=== PATIENT | female | born 1970 | race Caucasian/White ===

== ENCOUNTER 2016-09-28 01:10 | Emergency (ER) | payer MEDICAID ==
[~2016-09-28] VITALS: Ht 160 cm; Wt 68.2 kg
[~2016-09-28 01:10] MED LIST: IBUP200C PO; PNV; PREN1TAB49 BC
[2016-09-28 01:22] VITALS: Ht 160 cm; Wt 68.2 kg
[2016-09-28] MEDS ORDERED: morphine 4 MG/ML VIAL IV STA ×2 (02:08→03:57)
[2016-09-28] MEDS ORDERED: ONDANSETRON 4 MG INJ IV STA (02:08)
[2016-09-28] MEDS ORDERED: SOD CHLORIDE 0.9% 1,000 ML IV STA (02:08)
[2016-09-28 02:32] LABS: ALBUMIN 4.5 g/dl (3.3-4.9); POTASSIUM 3.7 mmol/L (3.5-5.1)
[2016-09-28 02:34] LABS: BASOPHILS % 0.3 % (0.0-2.0); BILIRUBIN,INDIRECT 0.2 mg/dl (0-1.1); BILIRUBIN,TOTAL 0.2 mg/dl (0.2-1.3); CREATININE 0.51 mg/dl (0.44-1.00); EOSINOPHILS # 0.3 10^3/ul (0.0-0.5); EOSINOPHILS % 1.5 % (0.0-7.0); HEMATOCRIT 42.4 % (37.0-47.0); HEMOGLOBIN 14.4 g/dl (12.0-16.0); LYMPHOCYTES # 3.2 10^3/ul (0.8-2.9); LYMPHOCYTES % 17.5 % (15.0-51.0); MEAN CORPUSCULAR HEMOGLOBIN 31.4 pg (29.0-33.0); MEAN CORPUSCULAR VOLUME 92.3 fl (82.0-101.0); MEAN PLATELET VOLUME 7.5 fl (7.4-10.4); MONOCYTE # 0.9 10^3/ul (0.3-0.9); MONOCYTES % 5.1 % (0.0-11.0); NEUTROPHIL # 13.9 10^3/ul (1.6-7.5); NEUTROPHILS % 75.6 % (39.0-77.0); PLATELET COUNT 293 10^3/UL (140-440); RED BLOOD COUNT 4.59 10^6/ul (4.20-5.40); RED CELL DISTRIBUTION WIDTH 12.6 % (11.5-14.5); UNCORRECTED WBC 18.4 10^3/ul (4.8-10.8); WHITE BLOOD COUNT 18.4 10^3/ul (4.8-10.8)
[2016-09-28 02:35] LABS: ALBUMIN/GLOBULIN RATIO 1.36; CALCIUM 9.3 mg/dl (8.4-10.2); TOTAL PROTEIN 7.8 g/dl (6.1-8.1)
[2016-09-28 02:36] LABS: CONDITION 1
[2016-09-28 03:00] LABS: ADD UMIC YES; URINE BILIRUBIN (Dip) NEGATIVE (NEGATIVE); URINE BLOOD (Dip) 2+ (NEGATIVE); URINE COLOR YELLOW (YELLOW); URINE GLUCOSE (Dip) NEGATIVE (NEGATIVE); URINE KETONES (Dip) TRACE (NEGATIVE); URINE LEUKOCYTE ESTERASE (Dip) NEGATIVE (NEGATIVE); URINE NITRITE (Dip) NEGATIVE (NEGATIVE); URINE TOTAL PROTEIN (Dip) NEGATIVE (NEGATIVE); URINE UROBILINOGEN (Dip) 0.2 E.U./dL (0.1-1.0)
[2016-09-28 03:09] LABS: BACTERIA,URINE OCCASIONAL; SQUAMOUS EPITHELIAL CELL,UR OCCASIONAL; URINE RBCS 0-2 /HPF (0)
--- NOTE | 2016-09-28 03:38 | RADRPT ---
PROCEDURE: CT Abdomen and pelvis without contrast. CLINICAL INDICATION: Abdominal pain. TECHNIQUE: CT scan of the abdomen and pelvis was performed on the [employer] 6 4 slice VCT scanner. Contiguous axial images using 2.5 mm slice thickness were obtained from the ariadne ng bases to the ischial tuberosities without intravenous contrast. Coronal and sagittal reformatted images were also obtained. Images were reviewed on the PACS workstation. One or more of the following dose reduction techniques were used: - Automated exposure control. - Adjustment of the mA and/or kV according to patient size. - Use of iterative reconstruction technique. Exam CTD/vol = 9.08 mGy. Total exam DLP = 540.25 mGy-cm. COMPARISON: None. FINDINGS: Evaluation of the lung bases demonstrates mild bibasilar atelectasis. There is a nodular density wit hin the left lower lobe measuring 8 x 5 mm. Abdomen: The liver is normal in size. There is no focal mass or dilatation of the biliary tree. T he gallbladder is not distended. The spleen, pancreas and bilateral adrenal glands are within radha l limits. Bilateral kidneys are normal in size with no contour deforming mass identified. There is no radiopaque renal or ureteral calculus identified. There is no hydronephrosis or hydroureter. T here is no retroperitoneal adenopathy. The abdominal aorta is of normal caliber. There is moderate retained stool within the colon. There is no bowel obstruction or free air. The appendix is not visualized. There is no diverticulosis or diverticulitis. There is no ascites. Pelvis: The bladder is unremarkable. The uterus and adnexa are within normal limits. There is no significant pelvic adenopathy or free fluid. Evaluation of the osseous structures demonstrates no suspicious lytic or blastic lesion. IMPRESSION: Moderate retained stool within the colon. Left lower lobe 8 x 5 mm nodule. Follow-up by Fleischner guidelines is recommended. Mild bibasilar atelectasis. .Jitendra Regalado MD, MD Date Time Electronically viewed and signed by .Jitendra Regalado MD, MD on 09/28/2016 03:38 .T/
--- NOTE | 2016-09-28 03:43 | ERD ---
ER Documentation Chief Complaint Date/Time DATE: 09/28/16 TIME: 03:41 Chief Complaint abd pain n/v x 2 hrs HPI This is a 46-year-old female comes in for f abdominal pain nausea vomiting for 2 hours. Abdominal pain is lower abdomen. Pain is colicky in nature. No fevers no chills. No other current complaints. Pain is radiated to her back. No other current problems. Pain tends to come in waves, and is relieved by rest. No other current issues ROS All systems reviewed and are negative except as per history of present illness. Medications Home Meds Reported Medications Ibuprofen* (Ibuprofen*) 200 Mg Capsule, 200 MG PO NEEDED 06/02/11 Vits W-Ca,Fe,Fa(<1MG) () 1 Tab Tablet, 1 BC 05/07/11 [Pnv] No Conflict Check 11/19/10 Allergies Allergies: Coded Allergies: No Known Allergies (Verified Allergy, Mild, 06/02/11) PMhx/Soc Medical and Surgical Hx: pt denies Medical Hx History of Surgery: Yes ( X 2) Anesthesia Reaction: No Hx Neurological Disorder: No Hx Respiratory Disorders: No Hx Cardiac Disorders: No Hx Psychiatric Problems: No Hx Miscellaneous Medical Probl: No Hx Alcohol Use: No Hx Substance Use: No Hx Tobacco Use: No Smoking Status: Never smoker Physical Exam Vitals Vital Signs Date Time Temp Pulse Resp B/P Pulse Ox O2 Delivery O2 Flow Rate FiO2 09/28/16 02:02 97.6 77 26 118/100 100 Room Air 09/28/16 01:22 97.6 84 26 135/80 98 Physical Exam Const: [] Head: Atraumatic Eyes: Normal Conjunctiva ENT: Normal External Ears, Nose and Mouth. Neck: Full range of motion..~ No meningismus. Resp: Clear to auscultation bilaterally Cardio: Regular rate and rhythm, no murmurs Abd: Soft, non tender, non distended. Normal bowel sounds Skin: No petechiae or rashes Back: No midline or flank tenderness Ext: No cyanosis, or edema Neur: Awake and alert Psych: Normal Mood and Affect Result Diagram: 09/28/16 0203 09/28/16 0203 Results 24 hrs Laboratory Tests Test 09/28/16 02:03 09/28/16 02:30 Alanine Aminotransferase (ALT/SGPT) 29IU/L Albumin 4.5g/dl Albumin/Globulin Ratio 1.36 Alkaline Phosphatase 69IU/L Anion Gap 21 Aspartate Amino Transf (AST/SGOT) 29IU/L Basophils # 0.010^3/ul Basophils % 0.3% Beta HCG, Quantitative < 2.4mIU/ml Blood Urea Nitrogen 12mg/dl Calcium Level 9.3mg/dl Carbon Dioxide Level 21mmol/L Chloride Level 103mmol/L Creatinine 0.51mg/dl Direct Bilirubin 0.00mg/dl Eosinophils # 0.310^3/ul Eosinophils % 1.5% Globulin 3.30g/dl Glucose Level 128mg/dl Hematocrit 42.4% Hemoglobin 14.4g/dl Indirect Bilirubin 0.2mg/dl Lipase 87U/L Lymphocytes # 3.210^3/ul Lymphocytes % 17.5% Mean Corpuscular Hemoglobin 31.4pg Mean Corpuscular Hemoglobin Concent 34.0g/dl Mean Corpuscular Volume 92.3fl Mean Platelet Volume 7.5fl Monocytes # 0.910^3/ul Monocytes % 5.1% Neutrophils # 13.910^3/ul Neutrophils % 75.6% Nucleated Red Blood Cells # 0.010^3/ul Nucleated Red Blood Cells % 0.0/100WBC Platelet Count 03284^3/UL Potassium Level 3.7mmol/L Red Blood Count 4.5910^6/ul Red Cell Distribution Width 12.6% Sodium Level 141mmol/L Total Bilirubin 0.2mg/dl Total Protein 7.8g/dl White Blood Count 18.410^3/ul Urine Bacteria OCCASIONAL Urine Bilirubin NEGATIVE Urine Clarity CLEAR Urine Color YELLOW Urine Glucose NEGATIVE% Urine Hemoglobin 2+ Urine Ketones TRACE Urine Leukocyte Esterase NEGATIVE Urine Microscopic RBC 0-2/HPF Urine Microscopic WBC 0-2/HPF Urine Nitrite NEGATIVE Urine Specific [place] 1.025 Urine Squamous Epithelial Cells OCCASIONAL Urine Total Protein NEGATIVE Urine Urobilinogen 0.2 E.U./dL Urine pH 5.5 Current Medications Medications (Trade) Dose Ordered Sig/Jj Route PRN Reason Start Time Stop Time Status Last Admin Dose Admin Sodium Chloride (NS) 1,000 ml @ 1,000 mls/hr Q1H STAT IV 09/28/16 02:08 09/28/16 03:07 DC 09/28/16 02:13 Morphine Sulfate (morphine) 4 mg ONCE STAT IV 09/28/16 02:08 09/28/16 02:09 DC 09/28/16 02:13 Ondansetron HCl (Zofran Inj) 4 mg ONCE STAT IV 09/28/16 02:08 09/28/16 02:09 DC 09/28/16 02:13 Procedures/MDM CBC: Evidence of elevated white count, likely stress reaction secondary to normal neutrophil shift CMP: [no e/o severe acidosis, alkalosis, renal failure, diabetic ketoacidosis, liver disease] Lipase: [no e/o pancreatitis] PT/INR: [normal coagulation] Urine: [no e/o acute infection or hematuria] CT shows retained stool Medical decision-making: This very pleasant patient comes with abdominal pain likely secondary constipation. At this point she is clinically stable. We discharged him with Colace Fleet Enema along with tramadol for pain. She is to return in 8 hours for serial abdominal exams. She is to increase p.o. fluid intake and fiber intake. Departure Diagnosis: Primary Impression: Abdominal pain Abdominal location: unspecified location Qualified Code: R10.9 - Abdominal pain, unspecified location Additional Impression: Constipation Constipation type: unspecified constipation type Qualified Code: K59.00 - Constipation, unspecified constipation type Condition: Stable RICK ALMAZAN Sep 28, 2016 03:43
[2016-09-28] MEDS ORDERED: FLEETOIL PR (03:51)
[2016-09-28] MEDS ORDERED: ULT50 PO (03:51)
[2016-09-28] MEDS ORDERED: DOCU-144 PO (03:51)
[2016-09-28 04:11] VITALS: BP 117/64; PULSE 76; RESP 26; TEMP 97.6
== END 2016-09-28 03:51 | disposition home or self-care (01) ==
LOC: E/R 01:10
DX: R10.30 Lower abdominal pain, unspecified (principal); K59.00 Constipation, unspecified; R11.2 Nausea with vomiting, unspecified
CPT/HCPCS: 36415; 74176; 80053; 81001; 81003; 83690; 84702; 85025; 96361; 96374; 96375; 96376; J2270; J2405; J7030; Z7502

== ENCOUNTER 2018-02-22 01:37 | Emergency (ER) | END 2018-02-22 05:50 | disposition home or self-care (01) ==

== ENCOUNTER 2018-10-27 15:03 | Emergency (ER) | payer MEDICAID ==
[~2018-10-27] VITALS: Wt 72.6 kg
[~2018-10-27 15:03] MED LIST changes: +DOCU-144 PO; +HYDR-4011 PO; +IBUP-1542 PO; +IBUP-1982 PO; -IBUP200C PO; +MINE133E23 PR; +TRAM50TA2 PO
[2018-10-27] MEDS ORDERED: LIDOCAINE 2% VISC 15 ML CUP PO ONE (15:30)
--- NOTE | 2018-10-27 15:46 | ERD ---
ER Documentation Chief Complaint Chief Complaint POSSIBLE FB TO THROAT S/P INGESTING FISH IN AM, AIRWAY PATENT ABLE TO SPEAK HPI Pleasant 48-year-old female who presents with family member. The patient states around 10 AM this morning she ate some fish and felt like there was a fish bone stuck in the back right of her throat. Since then she has a foreign body sensation. No difficulty swallowing only some mild discomfort. No drooling, no change in her voice. During the patient's encounter translation services were utilized Language: Faroese Source: Family in person ROS All systems reviewed and are negative except as per history of present illness. Medications Home Meds Discontinued Reported Medications Ibuprofen* (Ibuprofen*) 200 Mg Capsule, 200 MG PO NEEDED 06/02/11 Vits W-Ca,Fe,Fa(<1MG) () 1 Tab Tablet, 1 BC 05/07/11 [Pnv] No Conflict Check 11/19/10 Discontinued Scripts Hydrocodone/Acetaminophen ([place] 5-325 Tablet) 1 Each Tablet, 1 TAB PO Q6H PRN for SEVERE PAIN LEVEL 7-10, #20 TAB Prov:RACHEAL WARREN [employer]PER[employer]OR 02/22/18 Ibuprofen* (Motrin*) 600 Mg Tab, 600 MG PO Q6H PRN for PAIN AND OR ELEVATED TEMP, #30 TAB Prov:RACHEAL WARREN [employer]PER[employer]OR 02/22/18 Tramadol HCl (Tramadol HCl) 50 Mg Tablet, 50 MG PO Q6H PRN for PAIN, #15 TAB Prov:RICK ALMAZAN 09/28/16 Docusate Sodium* (Colace*) 100 Mg Capsule, 100 MG PO DAILY, #15 CAP Prov:RICK ALMAZAN 09/28/16 Mineral Oil* (Fleet* Mineral Oil Enema) 133 Ml Oil, 133 ML MS NEEDED PRN for CONSTIPATION, #1 ENEMA Prov:RICK ALMAZAN 09/28/16 Allergies Allergies: Coded Allergies: No Known Allergies (Verified Allergy, Mild, 10/27/18) PMhx/Soc History of Surgery: Yes ( X 2) Anesthesia Reaction: No Hx Neurological Disorder: No Hx Respiratory Disorders: No Hx Cardiac Disorders: No Hx Psychiatric Problems: No Hx Miscellaneous Medical Probl: No Hx Alcohol Use: No Hx Substance Use: No Hx Tobacco Use: No FmHx Family History: No diabetes Physical Exam Vitals Vital Signs Date Temp Pulse Resp B/P (MAP) Pulse Ox O2 O2 Flow FiO2 Time Delivery Rate 10/27/18 97.6 81 20 138/75 98 15:08 (96) Physical Exam General: Well developed, well nourished, no acute distress Head: Normocephalic, atraumatic. Eyes: EOM intact ENT: Moist mucous membranes, posterior pharynx without swelling or exudates uvula is midline no visualized foreign body or abrasion Neck: Full ROM Respiratory: No respiratory distress Cardiovascular: Well perfused distally Abdominal: Nondistended : Deferred MSK: No edema, no unilateral swelling, 5/5 strength Neurologic: Alert and oriented, moving all extremities, normal speech, steady gait Skin: No rash Psych: Normal mood Results 24 hrs Laboratory Tests Test 10/27/18 15:58 POC Beta HCG, Qualitative NEGATIVE Current Medications Medications Dose Sig/Jj Start Time Status Last (Trade) Ordered Route PRN Stop Time Admin Dose Reason Admin Lidocaine 15 ml ONCE ONCE 10/27/18 DC 10/27/18 (Xylocaine PO 15:30 10/27/18 15:39 (Viscous)) 15:31 Procedures/MDM EKG, MONITORS, & DIAGNOSTIC IMAGING: CT neck: No evidence of foreign body per radiologist read LAB INTERPRETATION: HCG negative MEDICAL DECISION MAKING: The patient presents to the emergency room with a fishbone foreign body sensation in her neck. She exhibits no signs or symptoms concerning for deep space infection or complete obstruction. CT of the neck soft tissue would be appropriate. If the patient has foreign body potentially semiurgent ENT follow- up would be appropriate. Viscous lidocaine appropriate. ER COURSE: * This is lidocaine given. Only mild relief. CT negative. * At this point the patient is tolerating oral intake. She is otherwise well- appearing without evidence ofinfection. The patient can be safely discharged with outpatient ENT follow-up if symptoms do not improve in 48 hours. CONSULTATION: [None] DISPOSITION PLAN: The patient does not have an identifiable emergent medical condition that warrants inpatient hospitalization at this time. The patient is deemed safe for discharge with outpatient follow-up. We discussed follow up with the patient's primary care doctor within 24 to 48 hours as needed. We also discussed return to the emergency room for worsening symptoms or worsening condition. Outpatient referral: ENT Departure Diagnosis: Primary Impression: Abrasion of pharynx Encounter type: initial encounter Qualified Codes: S10.11XA - Abrasion of throat, initial encounter Additional Impression: Foreign body sensation in throat Condition: Stable BILL ABEL MD Oct 27, 2018 15:46
[2018-10-27 17:27] VITALS: BP 128/78; PULSE 72; RESP 18
== END 2018-10-27 17:29 | disposition home or self-care (01) ==
LOC: E/R 15:03
DX: S10.11XA Abrasion of throat, initial encounter (principal); R09.89 Other specified symptoms and signs involving the circulatory and respiratory systems; X58.XXXA Exposure to other specified factors, initial encounter; Y92.9 Unspecified place or not applicable
CPT/HCPCS: 70490; 81025; Z7610

== ENCOUNTER 2019-01-10 16:46 | Emergency (ER) | payer MEDICAID ==
[~2019-01-10] VITALS: Ht 154.9 cm; Wt 72.3 kg
[2019-01-10 17:07] VITALS: Ht 154.9 cm; Wt 72.3 kg
[2019-01-10] MEDS ORDERED: morphine 4 MG/ML VIAL IV STA (20:57)
--- NOTE | 2019-01-10 22:05 | ERD ---
ER Documentation Chief Complaint Chief Complaint POST OP PAIN/DEHISCENCE - HAD SURGERY ( REMOVAL OF FIBROIDS 2 WEEKS AGO) HPI 48-year-old female presenting with lower abdominal pain. She is status post fibroid surgery done at [facility] 2 weeks ago. She had a laparoscopic surgery. 1 of her laparoscopy sites seems to have opened up and she was concerned about this. She also complains of lower abdominal pain that is worse than usual. No fevers or chills. She does have mild dysuria but no hematuria. No constipation, diarrhea, melena or hematochezia. ROS All systems reviewed and are negative except as per history of present illness. Medications Home Meds No Active Prescriptions or Reported Meds Allergies Allergies: Coded Allergies: No Known Allergies (Verified Allergy, Mild, 01/10/19) PMhx/Soc History of Surgery: Yes ( X 2, fibroidectomy) Anesthesia Reaction: No Hx Neurological Disorder: No Hx Respiratory Disorders: No Hx Cardiac Disorders: No Hx Psychiatric Problems: No Hx Miscellaneous Medical Probl: Yes (ELEVATED CHOLESTEROL) Hx Alcohol Use: No Hx Substance Use: No Hx Tobacco Use: No Smoking Status: Never smoker FmHx Family History: No diabetes Physical Exam Vitals Vital Signs Date Temp Pulse Resp B/P (MAP) Pulse Ox O2 O2 Flow FiO2 Time Delivery Rate 01/11/19 60 18 101/54 100 Room Air 00:19 (70) 01/10/19 68 14 126/84 100 Room Air 20:11 (98) 01/10/19 98.2 79 19 114/71 98 17:07 (85) Physical Exam Const: No acute distress Head: Atraumatic Eyes: Normal Conjunctiva ENT: Normal External Ears, Nose and Mouth. Neck: Full range of motion. No meningismus. Resp: Clear to auscultation bilaterally Cardio: Regular rate and rhythm, no murmurs Abd: Left lower abdominal small surgical incision with dehiscence, very shallow. No fluctuance or surrounding erythema. Soft abdomen, mild lower abdominal tenderness to palpation, more on the left. No McBurney's point tenderness. Negative Ovalles sign. No rebound or guarding. Non distended. Normal bowel sounds Skin: No petechiae or rashes Back: No midline or flank tenderness Ext: No cyanosis, or edema Neur: Awake and alert Psych: Normal Mood and Affect Result Diagram: 4201301/10/192013 Results 24 hrs Laboratory Tests Test 01/10/19 20:14 White Blood Count 11.2 10^3/ul Red Blood Count 4.30 10^6/ul Hemoglobin 13.8 g/dl Hematocrit 39.4 % Mean Corpuscular Volume 91.6 fl Mean Corpuscular Hemoglobin 32.1 pg Mean Corpuscular Hemoglobin Concent 35.0 g/dl Red Cell Distribution Width 12.0 % Platelet Count 269 10^3/UL Mean Platelet Volume 9.5 fl Immature Granulocytes % 0.400 % Neutrophils % 55.7 % Lymphocytes % 31.3 % Monocytes % 8.5 % Eosinophils % 3.7 % Basophils % 0.4 % Nucleated Red Blood Cells % 0.0 /100WBC Immature Granulocytes # 0.050 10^3/ul Neutrophils # 6.2 10^3/ul Lymphocytes # 3.5 10^3/ul Monocytes # 1.0 10^3/ul Eosinophils # 0.4 10^3/ul Basophils # 0.1 10^3/ul Nucleated Red Blood Cells # 0.0 10^3/ul Urine Color YELLOW Urine Clarity CLOUDY Urine pH 6.0 Urine Specific [place] 1.009 Urine Ketones NEGATIVE mg/dL Urine Nitrite NEGATIVE mg/dL Urine Bilirubin NEGATIVE mg/dL Urine Urobilinogen NEGATIVE mg/dL Urine Leukocyte Esterase TRACE Grace/ul Urine Microscopic RBC 7 /HPF Urine Microscopic WBC 4 /HPF Urine Squamous Epithelial Cells MANY /HPF Urine Bacteria FEW /HPF Urine Mucus FEW /HPF Urine Hemoglobin 2+ mg/dL Urine Glucose NEGATIVE mg/dL Urine Total Protein NEGATIVE mg/dl Urine Test NEGATIVE Sodium Level 141 mmol/L Potassium Level 3.8 mmol/L Chloride Level 104 mmol/L Carbon Dioxide Level 26 mmol/L Anion Gap 11 Blood Urea Nitrogen 9 mg/dl Creatinine 0.45 mg/dl Est Glomerular Filtrat Rate mL/min > 60 mL/min Glucose Level 101 mg/dl Calcium Level 9.9 mg/dl Total Bilirubin 0.2 mg/dl Direct Bilirubin 0.00 mg/dl Indirect Bilirubin 0.2 mg/dl Aspartate Amino Transf (AST/SGOT) 27 IU/L Alanine Aminotransferase (ALT/SGPT) 27 IU/L Alkaline Phosphatase 60 IU/L Total Protein 7.8 g/dl Albumin 4.5 g/dl Globulin 3.30 g/dl Albumin/Globulin Ratio 1.36 Current Medications Medications Dose Sig/Jj Start Time Status Last (Trade) Ordered Route PRN Stop Time Admin Dose Reason Admin Morphine 4 mg ONCE STAT 01/10/19 DC 01/10/19 Sulfate IV 20:57 21:11 (morphine) 01/10/19 20:58 Procedures/MDM EMERGENT LABS AND DIAGNOSTIC STUDIES: Lab Results above were reviewed and interpreted by me. CBC: no anemia or evidence of infection CMP: No evidence of clinically significant electrolyte abnormality, acidosis, renal failure, hypoglycemia, liver disease, or biliary obstruction UA: no clear evidence of infection Radiology Results as interpreted by Radiology below were reviewed by Josephine Byrne MD: CT abdomen and pelvis shows no acute abnormalities, left adnexal cyst noted Ultrasound pelvis: IMPRESSION: 1. 3.1 cm simple left ovarian cyst. No septation or nodularity. 2. Prominence of the endometrium with IUD in place. This may be related to normal phase of menstruation. 3. Otherwise, normal sonographic findings of the uterus and right ovary. Initial Nursing notes reviewed. Previous Medical Records requested via the Electronic Health Record. EMERGENCY DEPARTMENT COURSE / MEDICAL DECISION MAKING: Patient is presenting with evidence of wound dehiscence from her surgery 2 weeks ago as well as lower abdominal pain after fibroid surgery. She is afebrile and hemodynamically stable. I have a low suspicion for sepsis or acute surgical abdomen. However given her recent surgery, I cannot rule out intra-abdominal abscess. No evidence of peritonitis. Workup was done and did not reveal any significant abnormalities. She does have a left adnexal cyst with no evidence of torsion. My suspicion for torsion is very low. I discussed with her her imaging finding of cyst. She states that she had a very large cyst that was removed during the surgery as well. This must be a new cyst. Upon reeval uation, she is feeling much better. She was reassured that her workup did not show any significant abnormalities. I recommended follow-up with her ict support technicians within the next week. Return precautions were discussed. Wound care for wound dehiscence discussed. I explained to her that this will close by itself over time. There is no evidence of wound infection. Patient discharged in stable condition. Patient's blood pressure was elevated (>120/80) but appears stable without evidence of hypertensive emergency or urgency. The patient was counseled about the risks of hypertension and urged to pursue outpatient monitoring and therapy within a week with their primary care physician. Departure Diagnosis: Primary Impression: Postoperative lower abdominal pain Additional Impressions: Left ovarian cyst Wound dehiscence, surgical Encounter type: initial encounter Qualified Codes: T81.31XA - Disruption of external operation (surgical) wound, not elsewhere classified, initial encounter Condition: Stable JACKI BYRNE MD Jan 10, 2019 22:05
[2019-01-11 00:19] VITALS: BP 101/54; PULSE 60; RESP 18
== END 2019-01-11 00:20 | disposition home or self-care (01) ==
LOC: E/R 16:46
DX: G89.18 Other acute postprocedural pain (principal)
CPT/HCPCS: 36415; 74176; 76856; 80053; 81001; 84703; 85025; 96374; J2270; Z7502